=== PATIENT | male | born 1955 | race Caucasian/White ===

== ENCOUNTER 2018-05-01 12:34 | Emergency (ER) | payer BC ==
[~2018-05-01] VITALS: Ht 188 cm; Wt 86.2 kg
[2018-05-02] MEDS ORDERED: XARELTO15 MG PO (09:20)
== END 2018-05-02 11:20 | disposition home or self-care (01) ==
LOC: ER 12:34
DX: M54.5 Low back pain (principal); R06.02 Shortness of breath; M25.552 Pain in left hip; R11.0 Nausea; I82.492 Acute embolism and thrombosis of other specified deep vein of left lower extremity; I87.2 Venous insufficiency (chronic) (peripheral); F41.8 Other specified anxiety disorders

== ENCOUNTER → 2021-01-31 | Emergency (ER) | payer BC ==
[~2021-01-31] VITALS: Ht 152.4 cm; Wt 77.1 kg
[~2021-01-31] MED LIST: CHLORDIAZEPOXID25 MG PO; XARELTO15 MG PO
== END | disposition home or self-care (01) ==
LOC: ER 08:17 → CPU-OBS 08:51
DX: R07.89 Other chest pain (principal); F10.229 Alcohol dependence with intoxication, unspecified; Y90.9 Presence of alcohol in blood, level not specified